=== PATIENT | male | born 1955 | race Caucasian/White ===

== ENCOUNTER → 2018-03-08 | Outpatient (CLI) | payer SELFPAY ==
[~2018-03-08] MED LIST: MULTIVITAMIN
--- NOTE | 2018-03-08 12:02 | Diagnostic Imaging Report ---
EXAM: CT Chest WITHOUT contrast INDICATION: smoker, cough COMPARISON: None. TECHNIQUE: The Chest was scanned utilizing a multidetector helical scanner without the use of IV contrast. Coronal and sagittal reformations were obtained. IV CONTRAST: None COMPLICATIONS: None RADIATION DOSE: Total DLP: 430 mGy*cm Estimated effective dose: (DLP x 0.015 x size factor) mSv CTDIvol has been reviewed. It is below the limits set by the Radiation Protocol Committee (RPC). Appropriate CT dose reduction techniques were utilized. FINDINGS: Lines and Tubes: None. Lower Neck: The visualized thyroid gland is grossly unremarkable with no suspicious or significant nodule identified. Heart and Great Vessels: The aorta and main pulmonary artery measure 33 and 22 mm. respectively. No pericardial effusion. Moderate three-vessel coronary vascular calcifications. Lymph Nodes: 9 x 8 mm right level 2, 19 x 15 mm right level 4, 26 x 13 mm level 7, 12 x 9 mm level 5, 14 x 7 mm left level 11. The hilar regions are sub-optimally evaluated given lack of IV contrast. Lungs: No pneumothorax or pleural effusion. There is mild to moderate biapical scarring. Trachea and central bronchi are unremarkable. Moderate predominantly centrilobular emphysematous changes are present. Reticular opacities in the lung bases, asymmetric to the right, are incompletely evaluated without IV contrast. Mild scattered bronchial wall thickening present. 9 mm triangular nodule along the right oblique fissure series 3 image 65. 15 mm triangular nodule along the oblique fissure series 3 image 71. Upper abdomen: No acute findings. Bones and Soft Tissues: No acute findings. IMPRESSION: 1. 9 mm and 15 mm nodules along the oblique fissure on the right, triangular in shape, statistically lymph nodes. 6 month follow-up recommended to document stability. 2. Moderate apical predominant centrilobular emphysematous changes. 3. Scattered reticular opacities in the lung bases incompletely evaluated without prone imaging. Findings may represent component of CPFE (Combined Pulmonary Fibrosis and Emphysema) or senescent fibrotic changes. Follow-up high-resolution chest CT could be obtained if indicated. 4. Mildly enlarged lymph nodes, possibly reactive. Attention on follow-up studies. Signed by: Dr. Wali Turner MD on 03/08/2018 11:59 AM
== END ==
LOC: CT 09:30
PROVIDERS: ATTEND Internal Medicine
DX: Z12.2 Encounter for screening for malignant neoplasm of respiratory organs (principal); Z87.891 Personal history of nicotine dependence
CPT/HCPCS: 71250

== ENCOUNTER → 2019-03-06 | Outpatient (CLI) | payer MEDICARE ==
--- NOTE | 2019-03-06 09:05 | Diagnostic Imaging Report ---
CT of the chest, without contrast. History: Lung nodules. Comparison: 03/08/2018. Technique: Multidetector CT scanning of the chest was performed from the level of the apices to the upper abdomen without contrast. Coronal and sagittal multiplanar reformations were obtained. RADIATION DOSE: Total DLP: 260.79 mGy*cm Dose modulation, iterative reconstruction, and/or weight based adjustment of the mA/kV was utilized to reduce the radiation dose to as low as reasonably achievable. FINDINGS: The thyroid and remaining visualized structures within the base of the neck demonstrate no significant abnormalities. The thoracic aorta is normal course and caliber. The heart is not enlarged. No abnormal pericardial fluid is present. Prominent atherosclerotic calcifications noted within the coronary arteries. Again identified are multiple normal-sized to mildly enlarged mediastinal lymph nodes, unchanged in appearance from the prior examination. The largest precarinal lymph node measures 1.6 x 1.8 cm, previously 1.5 x 1.9 cm. Incidentally noted is bilateral gynecomastia. The trachea and proximal airways are patent. Again identified are centrilobular emphysematous changes, more prominent within the upper lobes. There is mild bibasilar atelectasis/scarring. Again identified are 2 nodules along the right oblique fissure measuring 8 mm (axial image 71) and 15 mm (axial image 75), unchanged from the prior examination. There is no evidence for consolidation, pneumothorax, mass/new nodule, or pleural effusion. Limited views of the upper abdomen demonstrate no significant abnormalities. The osseous structures demonstrate no evidence for acute fracture or destructive process. IMPRESSION: 1. Two stable right jeremy-fissural nodules again identified, unchanged in size/appearance since the prior examination from 03/08/2018. 2. Emphysematous changes. 3. Stable appearing mildly prominent mediastinal lymph nodes. Signed by: Dr. Bakari Barrios MD on 03/06/2019 9:02 AM
== END ==
LOC: CT 07:57
PROVIDERS: ATTEND Internal Medicine
DX: Z09 Encounter for follow-up examination after completed treatment for conditions other than malignant neoplasm (principal); R91.8 Other nonspecific abnormal finding of lung field
CPT/HCPCS: 71250

== ENCOUNTER → 2019-04-30 | Day surgery (SDC) | payer MEDICARE ==
[2019-04-26 11:21] LABS: BASOPHILS # (AUTO) 0.1 (0.0-0.1); BASOPHILS % 0.7 % (0.0-1.0); EOSINOPHILS # (AUTO) 0.6 (0.0-0.4); EOSINOPHILS % 7.3 % (0.0-6.0); HEMATOCRIT 44.7 % (38.2-49.6); HEMOGLOBIN 15.3 g/dL (14.0-18.0); LYMPHOCYTES # (AUTO) 2.3 (1.0-3.2); LYMPHOCYTES % 28.5 % (18.0-39.1); MEAN CORPUSCULAR HEMOGLOBIN 32.3 pg (28-32); MEAN CORPUSCULAR HGB CONC 34.2 g/dL (31-35); MEAN CORPUSCULAR VOLUME 94.5 fL (81-99); MONOCYTES # (AUTO) 0.9 (0.2-0.8); MONOCYTES % 10.7 % (4.4-11.3); NEUTROPHILS # (AUTO) 4.3 (2.1-6.9); NEUTROPHILS % 52.6 % (38.7-80.0); PLATELET COUNT 297 x10e3/uL (140-360); RED BLOOD COUNT 4.73 x10e6/uL (4.3-5.7); RED CELL DISTRIBUTION WIDTH 12.4 % (11.7-14.4)
[2019-04-26 11:34] LABS: INR 0.87; PROTHROMBIN TIME 12.3 seconds (11.9-14.5)
[2019-04-26 11:44] LABS: ALANINE AMINOTRANSFERASE 22 IU/L (0-55); ALBUMIN 3.8 g/dL (3.5-5.0); ALKALINE PHOSPHATASE 66 IU/L (40-150); ANION GAP 15.1 mmol/L (8-16); BLOOD UREA NITROGEN 9 mg/dL (7-26); BUN/CREATININE RATIO 8 (6-25); CALCIUM 9.9 mg/dL (8.4-10.2); CARBON DIOXIDE 25 mmol/L (22-29); CHLORIDE 100 mmol/L (98-107); CREATININE, SERUM 1.07 mg/dL (0.72-1.25); EST GLOMERULAR FILTRATION RATE > 60 ML/MIN (60-); GLUCOSE 103 mg/dL (74-118); POTASSIUM 4.1 mmol/L (3.5-5.1); SODIUM 136 mmol/L (136-145)
[~2019-04-30] VITALS: Ht 175.3 cm; Wt 83.9 kg
[2019-04-30] VITALS (16 sets, daily range): BP systolic 100–134; BP diastolic 67–93
[~2019-04-30] MED LIST changes: +ASPIR 8181 MG PO; +ASPIRIN 325 MG TAB ONE; +ATORVASTATIN CA80 MG PO; +BRILINTA90 MG PO; +FENTANYL CITRATE/PF 100MCG/2 ML INJ ONE; +FISH OIL 1,0001 EAC2 PO; +HEPARIN SOD (PORCINE) 1000 UNIT/ML 30ML ONE; +HEPARIN SOD/SOD CHLORIDE 2,000 ML ONE; +IOPAMIDOL 370 MG/ML 200 ML INFUS..BTL INJ ONE; +LIDOCAINE HCL 2% LOCAL 20 ML VIAL ONE; +MIDAZOLAM HCL 2 MG/2 ML VIAL ONE; +NITROGLYCERIN/D5W 200 MCG/ML 250 ML ONE; +NITROGLYCERIN0.4 MG SL; +SODIUM CHLORIDE 0.9% 1000ML 1,000 ML ONE; +TICAGRELOR 90 MG TABLET ONE; +VERAPAMIL HCL 2.5 MG/ML 2 ML VIAL ONE
--- NOTE | 2019-04-30 18:00 | NUR ---
IV to left hand removed and dressing placed per unit protocol. Dressing to left hand is clean,dry, and intact. Dressing to right wrist is clean,dry, and intact. Right wrist remains soft upon palpation and appears to be without swelling at this time. Right wrist splint in place. Patient instructed to remove splint tomorrow morning. Patient verbalized understanding and had no questions. 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 Patient discharged with belongings. No distress noted at time of discharge.
--- NOTE | 2019-06-08 13:53 | Operative Report ---
DATE OF PROCEDURE: 04/30/2019 SURGEON: Edenilson Rogers MD INDICATION FOR PROCEDURE: Staged PCI to the RCA. PREPROCEDURE ASSESSMENT: The risks, benefits, and alternatives to the treatment were explained to the patient prior to the procedure. Informed consent was documented and obtained in the medical record. The patient deemed to be an appropriate candidate for moderate sedation. PROCEDURES PERFORMED: 1. Percutaneous coronary intervention to the right coronary artery via right radial approach. 2. Moderate sedation time 6 minutes. PROCEDURE DETAILS: The patient was brought to the cardiac catheterization laboratory in a fasting state. Right wrist was prepped and draped in a sterile fashion. A 6-Surinamese Slender sheath was inserted in the right radial artery with modified Seldinger technique for staged PCI of the RCA. A 6-Surinamese JR4 guide catheter was used to provide adequate support. RCA was wired using a Runthrough wire without difficulty. Lesion was predilated using 2.0 x 15 mm Emerge balloon at 15 atmospheres. Lesion was stented using a [place] Synergy 2.75 x 20 mm balloon deployed at 12 mmHg pressures. This resulted in excellent angiographic result without any residual thrombus, dissection, or spasm and VICKI-3 flow. The patient tolerated the procedure well. ACT near 300 was maintained throughout the procedure. The patient was already on dual antiplatelet therapy, but it was reloaded at the end of the case with aspirin and Brilinta. All catheters were removed over a wire. Access site was closed using a TR band device. SIGNIFICANT FINDINGS: Successful PCI to the RCA using Synergy 2.75 x 20 mm drug-eluting stent. GRAFTS AND IMPLANTS: Drug-eluting stent x1. SPECIMEN REMOVED: None. ESTIMATED BLOOD LOSS: 20 mL. COMPLICATIONS: None. FINAL RECOMMENDATIONS: 1. TR band. 2. Continue dual antiplatelet therapy with aspirin, ticagrelor. 3. Staged PCI of the LAD in 2-4 weeks. Edenilson Rogers MD KVP/DONOVANL /[id number]
== END | disposition home or self-care (01) ==
LOC: CATH LAB 11:00
PROVIDERS: ATTEND Internal Medicine
DX: I25.10 Atherosclerotic heart disease of native coronary artery without angina pectoris (principal); I25.2 Old myocardial infarction; E78.00 Pure hypercholesterolemia, unspecified; Z01.812 Encounter for preprocedural laboratory examination; Z79.82 Long term (current) use of aspirin; Z82.49 Family history of ischemic heart disease and other diseases of the circulatory system
CPT/HCPCS: 36415; 80053; 85025; 85610; C1887; C9600; J1644; J2001; J2250; J3010; J7030; Q9967; 92928; 99152

== ENCOUNTER 2019-05-23 10:46 | Observation (INO) | payer MEDICARE ==
[2019-05-21 11:27] LABS: BASOPHILS # (AUTO) 0.1 (0.0-0.1); BASOPHILS % 0.8 % (0.0-1.0); EOSINOPHILS # (AUTO) 0.7 (0.0-0.4); EOSINOPHILS % 8.4 % (0.0-6.0); HEMATOCRIT 44.4 % (38.2-49.6); HEMOGLOBIN 15.1 g/dL (14.0-18.0); LYMPHOCYTES # (AUTO) 2.7 (1.0-3.2); LYMPHOCYTES % 31.7 % (18.0-39.1); MEAN CORPUSCULAR HEMOGLOBIN 32.3 pg (28-32); MEAN CORPUSCULAR VOLUME 95.1 fL (81-99); MONOCYTES % 11.1 % (4.4-11.3); NEUTROPHILS # (AUTO) 4.1 (2.1-6.9); NEUTROPHILS % 47.8 % (38.7-80.0); PLATELET COUNT 279 x10e3/uL (140-360); RED BLOOD COUNT 4.67 x10e6/uL (4.3-5.7); RED CELL DISTRIBUTION WIDTH 12.2 % (11.7-14.4)
[2019-05-21 11:52] LABS: INR 0.88; PROTHROMBIN TIME 12.5 seconds (11.9-14.5)
[2019-05-21 12:09] LABS: ALBUMIN 3.8 g/dL (3.5-5.0); ANION GAP 12.5 mmol/L (8-16); CALCIUM 10.2 mg/dL (8.4-10.2); CREATININE, SERUM 1.32 mg/dL (0.72-1.25); POTASSIUM 4.5 mmol/L (3.5-5.1)
[2019-05-21 12:20] LABS: CHOL/HDL RATIO 3.5 (3.9-4.7)
--- NOTE | 2019-05-21 13:32 | NUR ---
Dr. Rogers notified of creatinine 1.32 and eGFR 54. No new orders at this time.
[~2019-05-23] VITALS: Ht 175.3 cm; Wt 83.9 kg
[2019-05-23] VITALS (13 sets, daily range): BP systolic 109–173; BP diastolic 0–97
[~2019-05-23 10:46] MED LIST changes: -ASPIRIN 325 MG TAB ONE; -FENTANYL CITRATE/PF 100MCG/2 ML INJ ONE; -HEPARIN SOD (PORCINE) 1000 UNIT/ML 30ML ONE; -HEPARIN SOD/SOD CHLORIDE 2,000 ML ONE; -IOPAMIDOL 370 MG/ML 200 ML INFUS..BTL INJ ONE; -LIDOCAINE HCL 2% LOCAL 20 ML VIAL ONE; -MIDAZOLAM HCL 2 MG/2 ML VIAL ONE; -NITROGLYCERIN/D5W 200 MCG/ML 250 ML ONE; -SODIUM CHLORIDE 0.9% 1000ML 1,000 ML ONE; -TICAGRELOR 90 MG TABLET ONE; -VERAPAMIL HCL 2.5 MG/ML 2 ML VIAL ONE
[2019-05-23] MEDS ORDERED: MIDAZOLAM HCL 2 MG/2 ML VIAL ONE ×2 (13:51→15:38)
[2019-05-23] MEDS ORDERED: VERAPAMIL HCL 2.5 MG/ML 2 ML VIAL ONE (13:51)
[2019-05-23] MEDS ORDERED: FENTANYL CITRATE/PF 100MCG/2 ML INJ ONE ×2 (13:51→15:21)
[2019-05-23] MEDS ORDERED: LIDOCAINE HCL 2% LOCAL 20 ML VIAL ONE (13:52)
[2019-05-23] MEDS ORDERED: IOPAMIDOL 370 MG/ML 200 ML INFUS..BTL INJ ONE (13:52)
[2019-05-23] MEDS ORDERED: SODIUM CHLORIDE 0.9% 1000ML 1,000 ML ONE (13:52)
[2019-05-23] MEDS ORDERED: TICAGRELOR 90 MG TABLET ONE (16:14)
--- NOTE | 2019-05-23 16:16 | NUR ---
1616 pm RECEIVING NOTE [employer] TECH[employer]ICIAN [employer] DEPT............................................................... Bedside report received from JELENA Devi. Identifierx2. Alert oriented and appropriate, PERRLA, respirations even and unlabored to room air. Pulses x4 extremities equal and strong. Pedal pulses PT/DP X4.Cap fill brisk < 3 sec. TR band to rt may decrease at 6pm.No gross issues pain,pallor pressure or dysrhythmia. Skin warm and dry integrity appears D/I. IV 20g to left hand.Infusing via controller at 100cc/hr. presents healthy w/o s/s of infiltration or complaint. Abdomen soft and supple. pt offered toileting, denies need to urinate or defecate. No personal affects with patient. Family at bedside. Pre dc info reviewed with family. Pt and family verbalizes understanding of POC. May transfer at floor care RM 110 after TR band removed. Currently w/o complaint of pain or need. Back to baseline orientation. Tolerating po intake.-ds/rn
--- NOTE | 2019-05-23 17:20 | NUR ---
1720 c/o lizarraga frontal in mild nature not relieved with food. Medicated Tylenol [id number] Vs stable No gross issues pain,pallor,pressure or dysrhythmia. Family left to go [facility]. Family contact. Shyla , julieta/rn
--- NOTE | 2019-05-23 18:00 | NUR ---
1800 RADIAL COMPRESSION REMOVAL NOTE: Initial Cuff volume xx 12 cc 1800p -2cc Removed No hematoma/bleeding noted with normal neurovascular function. 1815p -5cc Removed No hematoma/ bleeding noted with normal neurovascular function. 1830p -5cc Removed No hematoma/bleeding noted with normal neurovascular function. Air removal completed. Stasis achieved sterile 2x2,Tegaderm, Coban dressing No hematoma, bleeding noted with normal neurovascular function. Wrist splint in place. Pt instructed on POC. Ds/Rn
--- NOTE | 2019-05-23 18:25 | NUR ---
1825 Report to Rossy Kolb for potential dc in am stent x2 fix per Dr Rogers via rt radial approach NO gross issues pain pallor pressure or dysrhythmia. Normal neuro vascular function Transported to floor care per stretcher and tele with RN escort. Met Rn in room left pt with staff in room call light at bedside aware of importance to call for help,brakes on. julieta/rossy
--- NOTE | 2019-05-23 18:46 | NUR ---
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
[2019-05-23] MEDS ORDERED: ACETAMINOPHEN 325 MG TAB PO NR (18:55)
--- NOTE | 2019-05-23 19:00 | NUR ---
RECEIVED PATIENT IN BEDSIDE SHIFT REPORT. PATIENT REPORTS NO PAIN AT THIS TIME. R WRIST IMMOBILIZER IN PLACE, CAP REFILL BRISK TO HANDS, NO SWELLING, BRUISING OR REDNESS NOTED TO HAND AND WRIST. PATIENT VERBALIZED UNDERSTANDING TO LEAVE IMMOBILIZER IN PLACE. TELE MONITOR ON. NO S&S OF DISTRESS NOTED. BED LOCKED IN LOWEST POSITION, SIDE RAILS UPX2, CALL LIGHT IN REACH.
[2019-05-23] MEDS ORDERED: NITROGLYCERIN 0.4 MG SUBL SL PRN (19:15)
[2019-05-23] MEDS ORDERED: ATORVASTATIN 40 MG TAB PO SCH (21:00)
[2019-05-24] VITALS: BP 111/66
[2019-05-24 04:00] VITALS: BP 100/61
[2019-05-24 08:01] VITALS: BP 115/56
[2019-05-24 08:14] VITALS: BP 115/56
--- NOTE | 2019-05-24 08:47 | NUR ---
Rounds by Dr. Rogers and cleared patient for discharge, does not need prescriptions at this time, removed dressing to right radial, radial pulse +3, extremity warm.
[2019-05-24] MEDS ORDERED: OMEGA 3 POLYUNSAT FATTY ACIDS 1000 MG SOFTGEL PO SCH (09:00)
[2019-05-24] MEDS ORDERED: TICAGRELOR 90 MG TABLET PO SCH (09:00)
[2019-05-24] MEDS ORDERED: ASPIRIN 81 MG ENTERIC COATED PO SCH (09:00)
--- NOTE | 2019-06-08 17:15 | Operative Report ---
DATE OF PROCEDURE: 05/23/2019 SURGEON: Edenilson Rogers MD INDICATION FOR PROCEDURE: Staged PCI to the LAD and diagonal 1 bifurcation. PREPROCEDURE ASSESSMENT: The risks, benefits, and alternatives to the treatment were explained to the patient prior to the procedure. The patient was deemed to be an appropriate candidate for moderate sedation. Informed consent was obtained and documented in the medical record. MEDICATIONS: Please see nursing notes for medications administered throughout the procedure. PROCEDURES PERFORMED: 1. Coronary angiography via right radial approach. 2. PCI to the LAD and diagonal 1 bifurcation with mini-crush technique with drug-eluting stent x2. 3. Moderate sedation supervision time 125 minutes. PROCEDURE IN DETAIL: The patient was brought to the cardiac catheterization laboratory in a fasting state. The right wrist was prepped and draped in a sterile fashion. A 6-Malawian Slender sheath was inserted in the right radial artery using modified Seldinger technique. Coronary angiography was performed of the left coronary system, which demonstrated severe Do 111 bifurcation lesion of the LAD and diagonal 1 bifurcation. We decided to proceed with a dedicated bifurcation stenting technique for PCI of the LAD and diagonal 1 bifurcation. XB 3.0 guiding catheter was used, which provided adequate support. Both lesions were wired using a Runthrough wire. Pre-dilation was performed using Emerge 2.5 x 12 mm balloon for both the LAD and diagonal 1. Stenting of the diagonal 1 was performed using 2.5 x 12 mm Synergy stent with minimal overlap into the LAD. The diagonal 1 wire and delivery system were then removed followed by crushing from the proximal part of the diagonal stent by deployment of the LAD and 2.75 x 38 mm stent deployed at 16 atmospheres followed by post-dilation and proximal optimization with 3.0 x 12 mm NC balloon. was then used to recross into the diagonal 1. We had some difficulty crossing back with a balloon, but finally 2.0 X 20 mm Emerge balloon was able to cross into the diagonal 1 and stent struts were dilated using this balloon followed by a final simultaneous kissing balloon inflation with 3.0 x 12 mm balloon in the LAD and a 2.5 x 12 mm balloon in the diagonal 1, both simultaneously inflated to 12 mmHg. This resulted in excellent angiographic result without any residual dissection, thrombus, or spasm. Both wires were removed. Final angiogram was taken. Guide catheter was removed over a wire. The patient tolerated the procedure well. Access site was closed using a TR band device. ACT near 300 was maintained throughout the procedure using IV boluses of heparin. Dual antiplatelet therapy was given using aspirin and ticagrelor at the end of the case. SIGNIFICANT FINDINGS: Successful PCI to the LAD and diagonal 1 bifurcation using drug-eluting stent x2 as described above. GRAFTS AND IMPLANTS: Drug-eluting stent x2. SPECIMENS REMOVED: None. ESTIMATED BLOOD LOSS: 20 mL. COMPLICATIONS: None. FINAL RECOMMENDATIONS: 1. Continue aspirin and Brilinta for at least 1 year followed by aspirin 81 mg daily for life. 2. Follow up in clinic 2 weeks post procedure. MD CASSIUS Todd/ANAMARIA /[id number]
== END 2019-05-24 10:10 | disposition home or self-care (01) ==
LOC: CATH LAB 10:46 → PACU V 15:47 → MED/SURG 18:38
PROVIDERS: ADMIT Internal Medicine; ATTEND Internal Medicine
DX: I25.119 Atherosclerotic heart disease of native coronary artery with unspecified angina pectoris (principal); Z01.812 Encounter for preprocedural laboratory examination; I10 Essential (primary) hypertension; E78.2 Mixed hyperlipidemia; I25.2 Old myocardial infarction; Z79.82 Long term (current) use of aspirin; Z83.3 Family history of diabetes mellitus; Z82.49 Family history of ischemic heart disease and other diseases of the circulatory system; Z91.018 Allergy to other foods
CPT/HCPCS: 36415; 80053; 80061; 85025; 85610; 92928 ×2; 92978; C1725 ×8; C1753; C1769; C1874; G0378 ×2; J2001; J2250; J3010; J7030; Q9967; 92929; 99152; 99153

== ENCOUNTER → 2023-02-10 | Outpatient (REF) | payer MEDICARE | LOC: CT 15:06 | PROVIDERS: ATTEND Internal Medicine | DX: R91.8 Other nonspecific abnormal finding of lung field (principal) | CPT/HCPCS: 71250 ==